=== PATIENT | male | born 1990 | race Caucasian/White ===

== ENCOUNTER 2017-05-17 12:20 | Emergency (ER) | payer OTHER ==
[~2017-05-17] VITALS: Ht 172.7 cm; Wt 91.0 kg
[2017-05-17 12:35] VITALS: BP 153/74; PULSE 83; RESP 18; TEMP 98.6; O2SAT 100
--- NOTE | 2017-05-17 13:44 | PD ---
HPI Chief Complaint: Injury Time Seen by Provider: 13:32 (Nubia Gibson) Time Seen by Provider: 14:54 (Shelia Sims) Travel History International Travel<30 days: No Contact w/Intl Traveler<30days: No Traveled to known affect area: No (Nubia Gibson) History of Present Illness HPI 26-year-old male presents to the emergency department for evaluation after he got pain between a forklift machine at work and the wall. He states that his bilateral upper legs Hand. This is where he reports his pain. Patient is Malay-speaking. 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 The patient denies any head injury or LOC. Denies any neck pain or back pain. No chest pain or abdominal pain. No nausea, vomiting, diarrhea. He reports bilateral upper leg pain. He does have abrasion to the right lateral knee, left lateral thigh and knee. He states his tetanus immunization is up-to-date. He reports no chronic medical problems and takes no prescribed medication. Pain is aching, throbbing without radiation. Moderate severity. Movement will exacerbate the pain. Lying still helps alleviate the pain. Patient arrived with a backboard in place. (Nubia Gibson) [facility] Social History Alcohol Use: No Tobacco Use: No Substance Use: No (Nubia Gibson) Allergies-Medications (Allergen,Severity, Reaction): Coded Allergies: No Known Allergies (Verified Allergy, Unknown, 05/17/17) Reported Meds & Prescriptions Reported Meds & Active Scripts Active No Active Prescriptions or Reported Medications (Shelia Sims) Review of Systems Except as stated in HPI: all other systems reviewed are Neg (Nubia Gibson) Physical Exam Narrative GENERAL: Well-nourished, well-developed male patient, afebrile. SKIN: Focused skin assessment warm/dry. Patient has abrasion to the right lateral knee, left lateral thigh, left lateral knee. HEAD: Normocephalic. Atraumatic EYES: No scleral icterus. No injection or drainage. NECK: Supple, trachea midline. No JVD or lymphadenopathy. CARDIOVASCULAR: Regular rate and rhythm without murmurs, gallops, or rubs. RESPIRATORY: Breath sounds equal bilaterally. No accessory muscle use. Lungs sounds are clear to auscultation. GASTROINTESTINAL: Abdomen soft, non-tender, nondistended. MUSCULOSKELETAL: No cyanosis, or edema. He has reduced range of motion of bilateral lower extremities due to pain. He reports tenderness over bilateral hips. BACK: Nontender without obvious deformity. No CVA tenderness. No midline spinal tenderness. (Nubia Gibson) Data Data Last Documented VS Vital Signs Date Time Temp Pulse Resp B/P (MAP) Pulse Ox O2 Delivery O2 Flow Rate FiO2 05/17/17 12:35 98.6 83 18 153/74 (100) 100 (Shelia Sims) Orders Orders Pelvis, Ap Only (Routine) (05/17/17 ) Femur (Ap & Lat/2vws) (05/17/17 ) Femur (Ap & Lat/2vws) (05/17/17 ) Acetamin-Hydrocod 325-5 Mg ([place] 5-325 (05/17/17 13:45) Knee, Complete (4vws) (05/17/17 15:14) Ice/Cold Pack (05/17/17 15:14) Knee, Complete (4vws) (05/17/17 15:14) Tetanus/Diphtheria Tox Adult (Tetanus/Di (05/17/17 15:30) Wound Care (05/17/17 16:02) Splint Or Brace Apply/Monitor (05/17/17 16:03) (Shelia Sims) MDM Medical Decision Making Medical Screen Exam Complete: Yes Emergency Medical Condition: Yes Medical Record Reviewed: Yes Differential Diagnosis fracture vs.contusion vs. dislocation Narrative Course 26-year-old male presents to the emergency department via EMS after he was pinned between a forklift and a wall. He reports pain to his bilateral thighs, knees. Patient denies any other injury. Patient is given Lortab 5/325 mg for pain. X-ray of the pelvis, right femur, left femur are ordered and pending. Workup is initiated in the ambulatory. Patient will be transferred to medical bed for further evaluation and disposition. (Nubia Gibson) Diagnosis Primary Impression: Knee pain, bilateral Qualified Codes: M25.561 - Pain in right knee; M25.562 - Pain in left knee Additional Impression: Abrasion Referrals: Primary Care Physician Patient Instructions: Acute Wound Care (DC), General Instructions, Knee Pain ( ED) Additional Instructions: Please return to emergency department if your symptoms return or worsen. Follow up with your primary care provider. Take ibuprofen as directed as needed for pain Rice therapy to bilateral knees, rest, ice, Charles wrap with activity and elevate with resting. Med/Other Pt SpecificInfo: Prescription(s) given (Shelia Sims) Scripts Ibuprofen (Ibuprofen) 600 Mg Tab 600 MG PO Q8H Y for PAIN, #15 TAB 0 Refills Prov: Shelia Sims 05/17/17 Disposition: 01 DISCHARGE HOME Condition: Stable Nubia Gibson May 17, 2017 13:44 Shelia Sims May 17, 2017 16:29
[2017-05-17] MEDS ORDERED: ACETAMINOPHEN/HYDROcodone 325 MG/5 MG TAB PO ONE (13:45)
--- NOTE | 2017-05-17 14:38 | RADRPT ---
EXAM DATE/TIME: 05/17/2017 13:55 [facility] COMPARISON: No previous studies available for comparison. INDICATIONS : Pelvic pain from fork lift accident. MEDICAL HISTORY : None. SURGICAL HISTORY : None. ENCOUNTER: Initial ACUITY: 1 day PAIN SCORE: 5/10 LOCATION: Bilateral pelvis. FINDINGS: A single frontal view of the pelvis demonstrates no evidence of fracture. The bony pelvic ring is in tact. Bony mineralization is normal. The soft tissues are intact. CONCLUSION: Negative Robert Erickson MD FACR on May 17, 2017 at 14:35 Board Certified Radiologist. This report was verified electronically.
--- NOTE | 2017-05-17 14:39 | RADRPT ---
EXAM DATE/TIME: 05/17/2017 14:11 [facility] COMPARISON: No previous studies available for comparison. INDICATIONS : Fork lift accident pain left femur. MEDICAL HISTORY : None. SURGICAL HISTORY : None. ENCOUNTER: Initial ACUITY: 1 day PAIN SCORE: 9/10 LOCATION: Left femur FINDINGS: Two view examination of the left femur demonstrates no evidence of fracture or dislocation. Bony min eralization is normal. The soft tissue structures are intact. CONCLUSION: Negative for fracture. Robert Erickson MD FACR on May 17, 2017 at 14:36 Board Certified Radiologist. This report was verified electronically.
--- NOTE | 2017-05-17 14:55 | RADRPT ---
EXAM DATE/TIME: 05/17/2017 13:57 [facility] COMPARISON: No previous studies available for comparison. INDICATIONS : Fork lift accident pain both right femur. MEDICAL HISTORY : None. SURGICAL HISTORY : None. ENCOUNTER: Initial ACUITY: 1 day PAIN SCORE: 10/10 LOCATION: Right femur FINDINGS: Two view examination of the right femur demonstrates no evidence of fracture or dislocation. Bony mi neralization is normal. The soft tissue structures are intact. CONCLUSION: 1. No acute fracture or dislocation. Kevan Osborn MD on May 17, 2017 at 14:52 Board Certified Radiologist. This report was verified electronically.
[2017-05-17] MEDS ORDERED: TETANUS/DIPHTHERIA TOXOID ADULT 0.5 ML VIAL IM ONE (15:30)
--- NOTE | 2017-05-17 15:55 | RADRPT ---
EXAM DATE/TIME: 05/17/2017 15:28 [facility] COMPARISON: No previous studies available for comparison. INDICATIONS : Left knee pain after fork lift accident. MEDICAL HISTORY : None. SURGICAL HISTORY : None. ENCOUNTER: Initial ACUITY: 1 day PAIN SCORE: 8/10 LOCATION: Left knee. FINDINGS: Four view examination of the left knee demonstrates no evidence of fracture or dislocation. Bony min eralization is normal. The articular surfaces are intact. The suprapatellar soft tissues have a nor mal configuration. CONCLUSION: 1. No acute findings Ebenezer Dewey MD on May 17, 2017 at 15:51 Board Certified Radiologist. This report was verified electronically.
--- NOTE | 2017-05-17 15:56 | RADRPT ---
EXAM DATE/TIME: 05/17/2017 15:31 [facility] COMPARISON: No previous studies available for comparison. INDICATIONS : Right knee pain after fork lift accident. MEDICAL HISTORY : None. SURGICAL HISTORY : None. ENCOUNTER: Initial ACUITY: 1 day PAIN SCORE: 8/10 LOCATION: Right knee. FINDINGS: Four view examination of the right knee demonstrates no evidence of fracture or dislocation. Bony mi neralization is normal. The articular surfaces are intact. The suprapatellar soft tissues have a no rmal configuration. CONCLUSION: Normal examination for a patient of this age. Ebenezer Dewey MD on May 17, 2017 at 15:53 Board Certified Radiologist. This report was verified electronically.
[2017-05-17] MEDS ORDERED: IBUP-232 PO (16:28)
--- NOTE | 2017-05-17 16:56 | PD ---
Physical Exam Date Seen by Provider: May 17, 2017 Time Seen by Provider: 15:15 Narrative 26-year-old male presents emergency department via EMS for evaluation after having a work-related injury when he got stuck between a forklift machine and the wall. It was initially evaluated by another provider. Please see the previous documentation for further details and history. Patient is Citizen Of [place]- speaking. [employer] services were used. Patient reports the majority of his pain as well as bilateral knees. Patient states the pain is worse with movement and better with inactivity. There are abrasions noted to the lateral aspect of bilateral knees. Patient states he is up-to-date on his tetanus vaccine however said the last time he had it was when he was a child. GENERAL: Well-nourished, well-developed 26-year-old male patient in no acute distress. SKIN: Abrasions to the lateral aspect of bilateral knees noted. HEAD: Normocephalic. Atraumatic. EYES: No scleral icterus. No injection or drainage. NECK: Supple, trachea midline. No JVD or lymphadenopathy. CARDIOVASCULAR: Regular rate and rhythm without murmurs, gallops, or rubs. RESPIRATORY: Breath sounds equal bilaterally. No accessory muscle use. GASTROINTESTINAL: Abdomen soft, non-tender, nondistended. MUSCULOSKELETAL: Bilateral knee edema and mild ecchymosis. Bilateral lower extremity neurovascularly intact. BACK: Nontender without obvious deformity. No CVA tenderness. Data Data Last Documented VS Vital Signs Date Time Temp Pulse Resp B/P (MAP) Pulse Ox O2 Delivery O2 Flow Rate FiO2 05/17/17 12:35 98.6 83 18 153/74 (100) 100 Orders Orders Pelvis, Ap Only (Routine) (05/17/17 ) Femur (Ap & Lat/2vws) (05/17/17 ) Femur (Ap & Lat/2vws) (05/17/17 ) Acetamin-Hydrocod 325-5 Mg ([place] 5-325 (05/17/17 13:45) Knee, Complete (4vws) (05/17/17 15:14) Ice/Cold Pack (05/17/17 15:14) Knee, Complete (4vws) (05/17/17 15:14) Tetanus/Diphtheria Tox Adult (Tetanus/Di (05/17/17 15:30) Wound Care (05/17/17 16:02) Splint Or Brace Apply/Monitor (05/17/17 16:03) [facility] Supervised Visit with ERIC: Yes Differential Diagnosis Differential diagnosis includes but not limited to contusion, fracture, abrasion Narrative Course Bilateral femur x-rays and pelvis x-ray ordered previously. Bath ordered for pain management previously. Bilateral knee x-ray ordered currently. Ice applied to bilateral knees. Tetanus updated. Bilateral knee x-rays show no acute findings. Pelvis x-ray is negative Bilateral femur x-rays show no acute finding. Patient is from reporting pain relief after the Bath. Wound care performed an bilateral Charles wrap applied to the knees. Patient is discharged home with a prescription of ibuprofen and instructions to follow-up with primary care return the emergency Department with any worsening condition. Last Impressions Knee X-Ray 05/17/17 151 Signed Impressions: Service Date/Time: Wednesday, May 17, 2017 15:28 - CONCLUSION: 1. No acute findings Ebenezer Dewey MD Knee X-Ray 05/17/17 1514 Signed Impressions: Service Date/Time: Wednesday, May 17, 2017 15:31 - CONCLUSION: Normal examination for a patient of this age. Ebenezer Dewey MD Pelvis X-Ray 05/17/17 0000 Signed Impressions: Service Date/Time: Wednesday, May 17, 2017 13:55 - CONCLUSION: Negative Robert Erickson MD FACR Femur X-Ray 05/17/17 0000 Signed Impressions: Service Date/Time: Wednesday, May 17, 2017 13:57 - CONCLUSION: 1. No acute fracture or dislocation. Kevan Osborn MD Femur X-Ray 05/17/17 0000 Signed Impressions: Service Date/Time: Wednesday, May 17, 2017 14:11 - CONCLUSION: Negative for fracture. Robert Erickson MD FACR Diagnosis Primary Impression: Knee pain, bilateral Qualified Codes: M25.561 - Pain in right knee; M25.562 - Pain in left knee Additional Impression: Abrasion Referrals: Primary Care Physician Patient Instructions: General Instructions, Acute Wound Care (DC), Knee Pain ( ED) Departure Forms: Tests/Procedures Additional Instruction: Please return to emergency department if your symptoms return or worsen. Follow up with your primary care provider. Take ibuprofen as directed as needed for pain Rice therapy to bilateral knees, rest, ice, Charles wrap with activity and elevate with resting. Scripts Ibuprofen (Ibuprofen) 600 Mg Tab 600 MG PO Q8H Y for PAIN, #15 TAB 0 Refills Prov: Shelia Sims 05/17/17 Disposition: 01 DISCHARGE HOME Condition: Stable Shelia Sims May 17, 2017 16:56
[2017-05-18] MEDS ORDERED: DICL75TA PO (22:21)
[2017-05-18] MEDS ORDERED: NORC5TAB PO (22:21)
== END 2017-05-17 17:13 | disposition home or self-care (01) ==
LOC: NEPD 12:20
DX: M25.562 Pain in left knee (principal); M25.561 Pain in right knee; S80.211A Abrasion, right knee, initial encounter; S70.312A Abrasion, left thigh, initial encounter; S80.212A Abrasion, left knee, initial encounter; W31.89XA Contact with other specified machinery, initial encounter; Z23 Encounter for immunization
CPT/HCPCS: 72170; 73552; 73564; 90471; 90714

== ENCOUNTER 2017-05-18 16:14 | Emergency (ER) | payer SELFPAY ==
[~2017-05-18 16:14] MED LIST: IBUP-232 PO
[2017-05-18 16:17] VITALS: BP 135/69; PULSE 92; RESP 14; TEMP 98.6; O2SAT 99
[2017-05-18 17:14] LABS: AUTOMATED NEUTROPHIL # 5.6 TH/MM3 (1.8-7.7); BASOPHIL % 0.3 % (0.0-2.0); EOSINOPHIL # 0.1 TH/MM3 (0-0.4); EOSINOPHIL % 1.3 % (0.0-4.0); HEMATOCRIT 43.2 % (39.0-51.0); HEMOGLOBIN 15.1 GM/DL (13.0-17.0); LYMPH % 25.1 % (9.0-44.0); LYMPHOCYTE # 2.1 TH/MM3 (1.0-4.8); MEAN CELL VOLUME 85.6 FL (80.0-100.0); MEAN CORPUSCULAR HEMOGLOBIN 29.9 PG (27.0-34.0); MEAN PLATELET VOLUME 7.6 FL (7.0-11.0); MONOCYTE # 0.6 TH/MM3 (0-0.9); NEUT % 66.3 % (16.0-70.0); PLATELET COUNT 204 TH/MM3 (150-450); RED BLOOD COUNT 5.05 MIL/MM3 (4.50-5.90); RED CELL DISTRIBUTION WIDTH 13.9 % (11.6-17.2); WHITE BLOOD COUNT 8.4 TH/MM3 (4.0-11.0)
[2017-05-18 17:35] LABS: ALT (GPT) 23 U/L (12-78); AST (GOT) 19 U/L (15-37); BICARBONATE 29.4 MEQ/L (21.0-32.0); BLOOD UREA NITROGEN 15 MG/DL (7-18); CHLORIDE 104 MEQ/L (98-107); CREATININE 0.94 MG/DL (0.60-1.30); GLOMERULAR FILTRATION RATE 99 ML/MIN (>89); GLUCOSE,RANDOM 97 MG/DL (74-106); SODIUM (NA) 139 MEQ/L (136-145)
[2017-05-18 17:38] LABS: ALKALINE PHOSPHATASE 103 U/L (45-117); TOTAL BILIRUBIN ADULT 0.6 MG/DL (0.2-1.0); TOTAL PROTEIN 8.4 GM/DL (6.4-8.2)
[2017-05-18 17:39] LABS: BILIRUBIN, URINE NEG (NEG); BLOOD, URINE NEG (NEG); GLUCOSE,URINE NEG (NEG); KETONE, URINE TRACE mg/dL (NEG); MUCUS URINE FEW /lpf (OCC); NITRITE,URINE NEG (NEG); PH, URINE 5.5 (5.0-8.5); SQUAMOUS EPITHELIAL CELL URINE <1 /hpf (0-5); URINE COLOR YELLOW (YELLW/STRAW); URINE LEUKOCYTE ESTERASE NEG (NEG)
[2017-05-18] MEDS ORDERED: LIDOCAINE HCL 1% 30 ML VIAL INFIL ONE (22:15)
[2017-05-18] MEDS ORDERED: LIDOCAINE HCL 1% 20 ML VIAL INFIL ONE (22:15)
--- NOTE | 2017-05-18 22:20 | PD ---
HPI Chief Complaint: Musculoskeletal Complaint Time Seen by Provider: 21:36 Travel History International Travel<30 days: No Contact w/Intl Traveler<30days: No Traveled to known affect area: No History of Present Illness HPI 26-year-old male presents to emergency department at the request of the urgent care to be evaluated for possible compartment syndrome or rhabdomyolysis. The patient was seen yesterday for a crush injury to his lower legs. Patient states that he has had worsening pain in his lower legs. He denies any numbness or tingling. No focal weakness. He states that he was given a pain pill by mouth yesterday but he did not fill his prescription. Symptoms are moderate. Exacerbated by palpation. Some relief with elevation. PFSH Past Medical History Narrative Medical Crush injury to the lower legs Tetanus Vaccination: < 5 Years Past Surgical History Surgical History: No Previous Surgery Social History Alcohol Use: No Tobacco Use: No Substance Use: No Allergies-Medications (Allergen,Severity, Reaction): Coded Allergies: No Known Allergies (Verified Allergy, Unknown, 05/18/17) Reported Meds & Prescriptions Reported Meds & Active Scripts Active Diclofenac Sodium DR (Diclofenac Sodium) 75 Mg Tabdr 75 Mg PO BID [place] (Hydrocodone-Acetaminophen) 5 Mg-325 Mg Tab 1 Tab PO Q4H PRN Ibuprofen 600 Mg Tab 600 Mg PO Q8H PRN Review of Systems General / Constitutional: No: Fever Eyes: No: Visual changes HENT: No: Headaches Cardiovascular: No: Chest Pain or Discomfort Respiratory: No: Shortness of Breath Gastrointestinal: No: Abdominal Pain Genitourinary: No: Dysuria Musculoskeletal: Positive: Myalgias, Arthralgias, Limited ROM, Edema, Pain, No : Weakness Skin: No Rash Neurologic: No: Weakness, Paresthesia Psychiatric: No: Depression Endocrine: No: Polydipsia Hematologic/Lymphatic: No: Easy Bruising Physical Exam Narrative GENERAL: This is a well-nourished, well-developed patient, in no apparent distress. SKIN: No rashes, ecchymoses or lesions. Warm and dry. HEAD: Atraumatic. Normocephalic. EYES: PERRL, EOMI, no discharge or injection. No scleral icterus. EARS: Clear NOSE: Nasal turbinates appear normal. THROAT: Mucosa pink and moist. Airway patent. NECK: Trachea midline. supple, moves head freely. LUNGS: Clear to auscultation. CV: Regular in rhythm. ABDOMEN: Soft nontender. EXT: No clubbing cyanosis. Examination the right leg compared to the left leg reveals intact sensation distally. He has intact Refill with good distal pulses. There is no pain elicited with dorsiflexion and plantarflexion of the toes, ankle. Patient complains of pain over the lateral and anterior compartments of the right lower leg. This is proximal. The compartments feel soft. There is no tenseness. Patient has normal color and temperature in the lower legs compared equally. Patient has abrasions and bruising to the anterior and lateral aspects of both lower legs at the level of the knee and proximal lower leg. There is also an abrasion to the left upper leg just above the knee. These areas are soft. No signs of any wound infection. Data Data Last Documented VS Vital Signs Date Time Temp Pulse Resp B/P (MAP) Pulse Ox O2 Delivery O2 Flow Rate FiO2 05/18/17 16:17 98.6 92 14 135/69 (91) 99 Orders Orders Complete Blood Count With Diff (05/18/17 16:31) Comprehensive Metabolic Panel (05/18/17 16:31) Urinalysis - C+S If Indicated (05/18/17 16:31) Creatine Kinase (Cpk) (05/18/17 16:31) Lidocaine 1% Inj (Xylocaine 1% Inj) (05/18/17 22:15) Lidocaine 1% Inj (Xylocaine 1% Inj) (05/18/17 22:15) Ed Discharge Order (05/18/17 22:33) Oxycodone-Acetamin 5-325 Mg (Percocet (05/18/17 22:45) Ibuprofen (Motrin) (05/18/17 22:45) Labs Laboratory Tests Test 05/18/17 16:44 05/18/17 16:50 05/18/17 17:00 White Blood Count 8.4 TH/MM3 Red Blood Count 5.05 MIL/MM3 Hemoglobin 15.1 GM/DL Hematocrit 43.2 % Mean Corpuscular Volume 85.6 FL Mean Corpuscular Hemoglobin 29.9 PG Mean Corpuscular Hemoglobin Concent 35.0 % Red Cell Distribution Width 13.9 % Platelet Count 204 TH/MM3 Mean Platelet Volume 7.6 FL Neutrophils (%) (Auto) 66.3 % Lymphocytes (%) (Auto) 25.1 % Monocytes (%) (Auto) 7.0 % Eosinophils (%) (Auto) 1.3 % Basophils (%) (Auto) 0.3 % Neutrophils # (Auto) 5.6 TH/MM3 Lymphocytes # (Auto) 2.1 TH/MM3 Monocytes # (Auto) 0.6 TH/MM3 Eosinophils # (Auto) 0.1 TH/MM3 Basophils # (Auto) 0.0 TH/MM3 CBC Comment DIFF FINAL Differential Comment Blood Urea Nitrogen 15 MG/DL Creatinine 0.94 MG/DL Random Glucose 97 MG/DL Total Protein 8.4 GM/DL Albumin 4.0 GM/DL Calcium Level 9.0 MG/DL Alkaline Phosphatase 103 U/L Aspartate Amino Transf (AST/SGOT) 19 U/L Alanine Aminotransferase (ALT/SGPT) 23 U/L Total Bilirubin 0.6 MG/DL Sodium Level 139 MEQ/L Potassium Level 3.7 MEQ/L Chloride Level 104 MEQ/L Carbon Dioxide Level 29.4 MEQ/L Anion Gap 6 MEQ/L Estimat Glomerular Filtration Rate 99 ML/MIN Total Creatine Kinase 296 U/L Urine Color YELLOW Urine Turbidity CLEAR Urine pH 5.5 Urine Specific [place] 1.031 Urine Protein TRACE mg/dL Urine Glucose (UA) NEG mg/dL Urine Ketones TRACE mg/dL Urine Occult Blood NEG Urine Nitrite NEG Urine Bilirubin NEG Urine Urobilinogen 2.0 MG/DL Urine Leukocyte Esterase NEG Urine WBC 7 /hpf Urine Squamous Epithelial Cells <1 /hpf Urine Mucus FEW /lpf Microscopic Urinalysis Comment CULT NOT INDICATED MDM Medical Decision Making Medical Screen Exam Complete: Yes Emergency Medical Condition: Yes Medical Record Reviewed: Yes Interpretation(s) Laboratory Tests Test 05/18/17 16:44 05/18/17 16:50 05/18/17 17:00 White Blood Count 8.4 TH/MM3 Red Blood Count 5.05 MIL/MM3 Hemoglobin 15.1 GM/DL Hematocrit 43.2 % Mean Corpuscular Volume 85.6 FL Mean Corpuscular Hemoglobin 29.9 PG Mean Corpuscular Hemoglobin Concent 35.0 % Red Cell Distribution Width 13.9 % Platelet Count 204 TH/MM3 Mean Platelet Volume 7.6 FL Neutrophils (%) (Auto) 66.3 % Lymphocytes (%) (Auto) 25.1 % Monocytes (%) (Auto) 7.0 % Eosinophils (%) (Auto) 1.3 % Basophils (%) (Auto) 0.3 % Neutrophils # (Auto) 5.6 TH/MM3 Lymphocytes # (Auto) 2.1 TH/MM3 Monocytes # (Auto) 0.6 TH/MM3 Eosinophils # (Auto) 0.1 TH/MM3 Basophils # (Auto) 0.0 TH/MM3 CBC Comment DIFF FINAL Differential Comment Blood Urea Nitrogen 15 MG/DL Creatinine 0.94 MG/DL Random Glucose 97 MG/DL Total Protein 8.4 GM/DL Albumin 4.0 GM/DL Calcium Level 9.0 MG/DL Alkaline Phosphatase 103 U/L Aspartate Amino Transf (AST/SGOT) 19 U/L Alanine Aminotransferase (ALT/SGPT) 23 U/L Total Bilirubin 0.6 MG/DL Sodium Level 139 MEQ/L Potassium Level 3.7 MEQ/L Chloride Level 104 MEQ/L Carbon Dioxide Level 29.4 MEQ/L Anion Gap 6 MEQ/L Estimat Glomerular Filtration Rate 99 ML/MIN Total Creatine Kinase 296 U/L Urine Color YELLOW Urine Turbidity CLEAR Urine pH 5.5 Urine Specific [place] 1.031 Urine Protein TRACE mg/dL Urine Glucose (UA) NEG mg/dL Urine Ketones TRACE mg/dL Urine Occult Blood NEG Urine Nitrite NEG Urine Bilirubin NEG Urine Urobilinogen 2.0 MG/DL Urine Leukocyte Esterase NEG Urine WBC 7 /hpf Urine Squamous Epithelial Cells <1 /hpf Urine Mucus FEW /lpf Microscopic Urinalysis Comment CULT NOT INDICATED Differential Diagnosis Differential diagnoses: Crush injury lower legs, compartment syndrome, rhabdomyolysis, noncompliance Narrative Course The patient's history does have potential for compartment or rhabdomyolysis although I suspect his exam is not consistent with this. He has soft compartments. He has good distal pulses and sensation. There is no pain with dorsiflexion/plantar flexion of the toes or ankle. We will perform compartment pressures of the right lower leg which seems to be his most complaint. The compartment pressures are checked. The right anterior is 22 and the lateral compartment is 12. Compartment syndrome has been ruled out. Rhabdomyolysis has been ruled out. His pain is secondary to his initial trauma which has not been treated at home. He has not taking any medication for pain this includes Tylenol or Advil. He is given 5 mg hydrocodone and Motrin 800 mg here in the ER. Procedures Procedure Narrative Compartment pressure testing of the right lower leg: the skin is prepped sterilely using Hibiclens. The skin is in marked with a surgical marker. 1 cc of 1% lidocaine is injected to the anterior compartment as well as a lateral compartment. Using the striker compartment pressures are checked. It has been cleared of any air bubbles. It has been 0 at the proper angle. Needle is inserted into the compartments. 0.3 mL of saline is injected. The compartment pressure of the anterior compartment is 22. Compartment placement is confirmed with plantar flexion with increasing compartment pressure. The lateral component pressures are checked and are 12. Once again the compartment pressures are confirmed with inversion of the ankle and foot. Patient tolerates procedure well. No complications. Compartment syndrome has been ruled out. Diagnosis Primary Impression: crush injury right and left lower legs Patient Instructions: Narcotic given in the ED, General Instructions Departure Forms: Tests/Procedures, Work Release Special Instructions: No work 3 days. Additional Instructions: Rest. Elevation above the heart at all times. Ice for the next 2 days. 20 minutes on 20 minutes off. Diclofenac and hydrocodone. Follow-up with Workmen's Compensation the next 2-3 days. Return to the ER for emergencies Scripts Diclofenac Sodium DR (Diclofenac Sodium DR) 75 Mg Tabdr 75 MG PO BID, #20 TAB 0 Refills Prov: KeelyClarisse DO 05/18/17 Hydrocodone-Acetaminophen ([place]) 5 Mg-325 Mg Tab 1 TAB PO Q4H Y for PAIN, #12 TAB 0 Refills Prov: KeelyClarisse DO 05/18/17 Disposition: 01 DISCHARGE HOME Condition: Stable Ebenezer Smith May 18, 2017 22:20
[2017-05-18] MEDS ORDERED: DICL75TA PO (22:21)
[2017-05-18] MEDS ORDERED: NORC5TAB PO (22:21)
[2017-05-18] MEDS ORDERED: IBUPROFEN 800 MG TAB PO ONE (22:45)
[2017-05-18] MEDS ORDERED: oxyCODONE/ACETAMINOPHEN 5 MG/325 MG TAB PO ONE (22:45)
== END 2017-05-18 23:14 | disposition home or self-care (01) ==
LOC: NEPK 16:14
DX: S87.81XA Crushing injury of right lower leg, initial encounter (principal); S87.82XA Crushing injury of left lower leg, initial encounter; W23.0XXA Caught, crushed, jammed, or pinched between moving objects, initial encounter
CPT/HCPCS: 20950; 80053; 81001; 82550; 85025